=== PATIENT | male | born 1995 | race Caucasian/White ===

== ENCOUNTER 2024-10-11 13:59 | Emergency (ER) | payer MEDICAID ==
[~2024-10-11] VITALS: Ht 182.9 cm; Wt 101.1 kg
[2024-10-11 14:02] VITALS: BP 119/73; PULSE 121; RESP 16; O2SAT 97
[2024-10-11] MEDS: acetaminophen 325mg tablet PO ONE (14:08)
[2024-10-11 15:23] LABS: STREP A SCREEN NEGATIVE (Neg)
--- NOTE | 2024-10-11 16:03 | Physician Documentation ---
History of Present Illness ~ Chief Complaint: Sore Throat Stated Complaint: FLU LIKE SYMPTOMS Time Seen by MD: 14:58 Primary Medical Doctor: none HPI 28-year-old male reports a chief complaint of sore throat. Patient states that he has been having sore throat for about one day. Patient's girlfriend is also having pain and was diagnosed with tonsillitis. Currently denies fevers or chills. Denies cough. No other complaints at this time Medication Reconciliation Allergies: Coded Allergies: No Known Allergies (Unverified , 01/01/12) Past Medical History Past Medical History: No Pertinent History Past Surgical History: no surgical history Smoking Status: Current every day smoker Alcohol Use: Occasionally Drug Use: marijuana, methamphetamine Physical Exam Vital Signs: Temperature: 103.1, Source: Oral, Heart Rate: 121, Respiratory Rate: 16, BP: 119/73, Pulse Oximetry: 97, Weight: 101.100 Oxygen Flow Rate: 0 Physical Exam General: Well developed, well nourished, no distress. HEENT: Positive for erythema, 2+ edema with exudates. Positive LAD Neck: Full range of motion, supple. Respiratory: Lungs clear, no respiratory distress. Chest: No accessory muscle use, nontender. Cardiovascular: Regular rate and rhythm. Gastrointestinal: Soft, nontender, nondistended. Bowel sounds present. Extremities: Normal range of motion, nontender, normal capillary refill, no deformity. Back: No midline tenderness, no CVA tenderness. Neurologic: Oriented x4. Distal gross motor and sensory intact all four extremities. Moves all 4 extremities spontaneously. Psychiatric: Normal mood and affect. Skin: Normal color, warm and dry. No edema, no ecchymosis Progress Results/Orders Results/Orders Medications Received in ER Medications (Trade) Dose Ordered Sig/[place] Route PRN Reason Start Time Stop Time Status Last Admin Dose Admin (Tylenol tablet) 650 mg ONCE ONCE PO 10/11/24 14:05 10/11/24 14:06 DC 10/11/24 14:08 650 MG Vital Signs 10/11/24 14:02 Temp 103.1 Pulse 121 Resp 16 B/P (MAP) 119/73 Pulse Ox 97 O2 Flow Rate 0 Laboratory Tests Test 10/11/24 14:06 Group A Streptococcus Rapid Negative Medical Decision Making Additional info obtained from: old records Findings After detailed discussion and joint medical decision-making, diagnostic and imaging results were discussed with the patient. At this time patient appears to have evidence of strep throat. Physical exam is consistent with a strep patient be treated for it. Patient was advised to follow up primary care. ER precautions were given. Patient is stable upon discharge. All patient questions answered to satisfaction Ear Diff. Dx: Considerations: Include: Other (Strep, tonsillitis, pharyngitis, diphtheria) Departure Disposition: HOME / SELF CARE / HOMELESS Impression: Primary Impression: Sore throat Additional Impressions: Acute pharyngitis Pharyngitis Condition: Stable Discharge Instructions: Sore Throat, Tonsillitis, Strep Throat, Adult Referrals: NO PRIMARY CARE PROVIDER (PCP) Prescriptions Hydrocodone Bit/Acetaminophen 5/325 MG ([place] 5/325 MG) 5 Mg/325 Mg Tablet 1 TAB PO TID PRN PRN for pain for 5 Days, #15 TAB Prov: DIONTE LOPEZ 10/11/24 Amox Tr/Potassium Clavulanate (Augmentin 875-125 Tablet) 1 Each Tablet 1 TAB PO Q12H for 10 Days, #20 TAB Prov: DIONTE LOPEZ 10/11/24 Education Educated: Patient Educated regarding: diagnosis, treatment Signature Scribe Signature: none used Attestation: Scribed for Dionte Lopez by Dionte KAUFMAN . 10/11/24 16:15 DIONTE LOPEZ October 11, 2024 16:03
[2024-10-11] MEDS ORDERED: AMOX-117 PO (16:19)
[2024-10-11] MEDS ORDERED: HYDR-3965 PO (16:19)
[2024-10-11] MEDS ORDERED: AMOX-318 PO (16:24)
[2024-10-11 16:30] VITALS: TEMP 103.1
== END 2024-10-11 16:31 | disposition home or self-care (01) ==
LOC: ER 14:00
DX: J02.9 Acute pharyngitis, unspecified (principal); F12.90 Cannabis use, unspecified, uncomplicated; F17.200 Nicotine dependence, unspecified, uncomplicated
CPT/HCPCS: 87081; 87880; 99283